=== PATIENT | female | born 1945 | race Caucasian/White ===

== ENCOUNTER 2017-05-09 11:23 | Inpatient (IN) | payer MEDICARE, MEDICAID ==
[~2017-05-09] VITALS: Ht 157.5 cm; Wt 57.6 kg
--- NOTE | 2017-05-09 11:30 | NUR ---
BIBPA SENT BY DR MARTINEZ FROM [facility] FOR PSYCH EVAL, PT IS HAVING AUDITORY AND VISUAL HALLUCINATION-- THINKING SHE'S PREGANANT. PATIENT IS AAO3. APPEARS IN NO APPARENT DISTRESS. RESPIRATION EVEN AND UNLABORED. AFEBRILE. VSS
[2017-05-09 12:07] LABS: BASOPHILS # (AUTO) 0.1 /CMM (0.0-0.2); BASOPHILS % (AUTO) 1.4 % (0.0-2.0); EOSINOPHILS # (AUTO) 0.1 /CMM (0.0-0.7); EOSINOPHILS % (AUTO) 1.5 % (0.0-6.0); HEMATOCRIT 36 % (33-45); HEMOGLOBIN 12.3 g/dL (11.5-14.8); LYMPHOCYTES # (AUTO) 0.9 /CMM (0.8-4.8); LYMPHOCYTES % (AUTO) 21.2 % (20.0-44.0); MEAN CORPUSCULAR HEMOGLOBIN 34 PG (26.0-33.0); MEAN CORPUSCULAR HGB CONC 34 g/dl (31.0-36.0); MEAN CORPUSCULAR VOLUME 98 fL (82-100); MONOCYTES # (AUTO) 0.6 /CMM (0.1-1.30); MONOCYTES % (AUTO) 14.1 % (2.0-12.0); NEUTROPHILS # (AUTO) 2.5 /CMM (1.8-8.9); NEUTROPHILS % (AUTO) 61.8 % (43.0-81.0); PLATELET COUNT (AUTO) 256 /CMM (150-450); RDW COEFFICIENT OF VARIATION 12.8 (11.5-15.0); RED BLOOD CELL COUNT(AUTO) 3.65 MIL/uL (4.0-5.2); WHITE BLOOD COUNT (AUTO) 4.2 K/uL (4.3-11.0)
[2017-05-09 12:08] LABS: APPEARANCE,URINE Hazy (CLEAR); BILIRUBIN,URINE SMALL (NEGATIVE); BLOOD, URINE Negative Ery/uL (NEGATIVE); COLOR,URINE Yellow (YELLOW); KETONES,URINE Trace (NEGATIVE); LEUKOCYTE ESTERASE ,URINE Small (NEGATIVE); NITRITE, URINE Negative (NEGATIVE); PROTEIN,URINE Trace mg/dl (NEGATIVE); UGLUCOSE Negative (NEGATIVE); UROBILINOGEN,URINE 0.2 EU/dL (0.2)
[2017-05-09 12:13] LABS: BACTERIA,URINE None seen /HPF (None Seen); MUCUS,URINE Few /LPF (None Seen); SQUAMOUS EPITHELIAL CELL,UR Few /HPF (None Seen)
[2017-05-09 12:14] LABS: HYALINE CASTS, URINE Rare /LPF (None Seen)
[2017-05-09 12:15] LABS: CALCIUM, SERUM 8.4 mg/dL (8.5-10.1); CARBON DIOXIDE 30 mmol/L (21-32); CHLORIDE 94 mmol/L (98-107); CREATININE 0.9 mg/dL (0.6-1.3); GLUCOSE 105 mg/dL (74-106); POTASSIUM 3.6 mmol/L (3.5-5.1); SODIUM SERUM 129 mmol/L (136-145); UREA NITROGEN, BLOOD 17 mg/dL (7-18)
[2017-05-09 12:25] LABS: ACETAMINOPHEN 0 ug/ml (10-30); ALANINE AMINOTRANSFERASE 26 U/L (12-78); ALBUMIN 3.6 g/dL (3.4-5.0); ALCOHOL, BLOOD < 3 mg/dL (0-0); ALKALINE PHOSPHATASE 64 U/L (46-116); ASPARTATE AMINOTRANSFERASE 22 U/L (15-37); BILIRUBIN,DIRECT 0.1 mg/dL (0.0-0.2); BILIRUBIN,TOTAL 0.4 mg/dL (0.2-1.0); SALICYLATE 1.4 mg/dL (2.8-20.0); TOTAL PROTEIN, SERUM 6.3 g/dL (6.4-8.2)
--- NOTE | 2017-05-09 12:43 | NUR ---
CALLED ART FLUME RIDE OPERATOR, HE SAID HE WOULD BE HERE SOON.
--- NOTE | 2017-05-09 13:53 | NUR ---
urine sample sent to lab
--- NOTE | 2017-05-09 14:24 | NUR ---
CALLED [employer], PROFESSOR OF ENGINEERING WAS PAGED.
[2017-05-09] MEDS ORDERED: TRAZ-144 PO (15:06)
[2017-05-09] MEDS ORDERED: TRIH2TAB3 PO (15:06)
[2017-05-09] MEDS ORDERED: CALC500T3 PO (15:06)
[2017-05-09] MEDS ORDERED: BUSP5TAB3 PO (15:06)
[2017-05-09] MEDS ORDERED: OLAN10TA3 PO (15:06)
[2017-05-09] MEDS ORDERED: LEVO175T7 PO (15:06)
[2017-05-09] MEDS ORDERED: HALO2TAB PO (15:06)
[2017-05-09] MEDS ORDERED: DOCU-170 PO (15:06)
[2017-05-09] MEDS ORDERED: GABA-532 PO (15:06)
[2017-05-09] MEDS ORDERED: CARB200T PO (15:06)
[2017-05-09] MEDS ORDERED: LOSA25TA13 PO (15:06)
[2017-05-09] MEDS ORDERED: CHOL200026 PO (15:06)
[2017-05-09] MEDS ORDERED: ALEN70TA45 PO (15:06)
--- NOTE | 2017-05-09 15:23 | NUR ---
PATIENT WILL BE ADMITTED INTO ROOM 211.
--- NOTE | 2017-05-09 15:34 | NUR ---
REPORT GIVEN TO NURSE YING FOR [facility]
--- NOTE | 2017-05-09 15:38 | NUR ---
PT TRANSPORTED TO [facility]. VSS
[2017-05-09 16:15] VITALS: BP 136/78
--- NOTE | 2017-05-09 16:15 | NUR ---
[employer] MEDICARE SALES EXECUTIVE NOTES/ PATIENT ADMITTED FROM ER ON 5150 HOLD FEMALE 71 Y/OLD ON Dx. OF GD, [place]EN[place]. ACCORDING ON HOLD PATIENT PATIENT DELUSIONAL, HALLUCINATING PATIENT " I AM , AND ME AND MY BOYFRIEND GOING TO MARRED LEGALLY". ON FACE TO FACE ASSESSMENT PATIENT A/O X2/3, NO RESPIRATORY DISTRESS, CALM AT THIS TIME. PATIENT DEPRESS,DELUSIONAL NO ACUTE DISTRESS, PATIENT DENIED SI/HI/AVH AT THIS TIME. PATIENT SKIN ASSESSMENT DONE, SKIN CLEAR, PT AMBULATORY, SELF CARE. PATIENTS RIGHT HAND BOOK GIVEN AND EXPLAINED TO. PATIENT BELONGING AND CONTRABAND CHECKED. FAMILY NOTIFIED. DR MARTINEZ, AND APPARATUS ENGINEERING TECHNOLOGIST RACHEL AWARE OF NEW PATIENT , AND NEW MEDICATION. CONTINUED MONITORING.
[2017-05-09] MEDS ORDERED: LORAZEPAM 0.5 MG TABLET PO PRN (17:00)
[2017-05-09] MEDS ORDERED: ACETAMINOPHEN 325 MG TABLET PO PRN (17:00)
[2017-05-09] MEDS ORDERED: MAG HYDROX/AL HYDROX/SIMETH 30 ML UDC PO PRN (17:00)
[2017-05-09] MEDS ORDERED: MAGNESIUM HYDROXIDE 30 ML UDC PO PRN (17:00)
[2017-05-09] MEDS: DIVALPROEX SODIUM 250 MG TABLET.DR PO SCH ×2 (18:08→21:53)
[2017-05-09 19:32] VITALS: BP 114/75
[2017-05-09] MEDS ORDERED: HALOPERIDOL 5 MG TABLET PO SCH (21:00)
[2017-05-09] MEDS ORDERED: DIVALPROEX SODIUM 250 MG TABLET.DR PO SCH (21:00)
[2017-05-09] MEDS: BENZTROPINE MESYLATE (1 MG) 1 MG TABLET PO SCH (21:53)
[2017-05-09] MEDS: HALOPERIDOL 5 MG TABLET PO SCH (21:53)
[2017-05-09] MEDS: TRAZODONE 50 MG TABLET PO SCH (21:54)
[2017-05-09] MEDS ORDERED: TRAZODONE 50 MG TABLET PO SCH (22:00)
[2017-05-10 07:27] LABS: ALANINE AMINOTRANSFERASE 30 U/L (12-78); ALKALINE PHOSPHATASE 68 U/L (46-116); ASPARTATE AMINOTRANSFERASE 26 U/L (15-37); BILIRUBIN,TOTAL 0.4 mg/dL (0.2-1.0); CARBON DIOXIDE 30 mmol/L (21-32); CHLORIDE 97 mmol/L (98-107); CREATININE 0.7 mg/dL (0.6-1.3); GLUCOSE 87 mg/dL (74-106); POTASSIUM 3.8 mmol/L (3.5-5.1); SODIUM SERUM 137 mmol/L (136-145); TOTAL PROTEIN, SERUM 7.3 g/dL (6.4-8.2); UREA NITROGEN, BLOOD 11 mg/dL (7-18)
[2017-05-10 08:00] VITALS: BP 152/75
[2017-05-10] MEDS: DIVALPROEX SODIUM 250 MG TABLET.DR PO SCH ×3 (08:51→21:28)
[2017-05-10] MEDS: BENZTROPINE MESYLATE (1 MG) 1 MG TABLET PO SCH ×2 (08:51→21:27)
[2017-05-10] MEDS: HALOPERIDOL 5 MG TABLET PO SCH ×2 (08:52→21:28)
[2017-05-10] MEDS ORDERED: CARBAMAZEPINE 200 MG TABLET PO SCH (11:00)
[2017-05-10] MEDS: CHOLECALCIFEROL 1,000 UNIT TABLET (VIT D3) PO SCH (11:36)
[2017-05-10] MEDS: LEVOTHYROXINE SODIUM 175 MCG TABLET PO SCH (11:36)
[2017-05-10] MEDS: DOCUSATE SODIUM 100 MG CAPSULE PO SCH (11:36)
[2017-05-10] MEDS: busPIRone 5 MG TABLET PO SCH ×2 (11:37→17:21)
[2017-05-10] MEDS: GABAPENTIN 100 MG CAPSULE PO SCH ×2 (11:41→21:27)
[2017-05-10] MEDS: LOSARTAN POTASSIUM 25 MG TABLET PO SCH (11:42)
[2017-05-10] MEDS: CALCIUM CARBONATE (1250) 500 MG TABLET PO SCH ×2 (11:56→17:21)
[2017-05-10] MEDS: TRIHEXYPHENIDYL HCL 2 MG TABLET PO SCH ×2 (12:27→17:21)
[2017-05-10 16:02] VITALS: BP 149/78
[2017-05-10 20:26] VITALS: BP 113/72
[2017-05-10 20:28] VITALS: BP 113/72
[2017-05-10] MEDS: TRAZODONE 50 MG TABLET PO SCH (21:28)
[2017-05-11] MEDS: TEMAZEPAM 7.5 MG CAPSULE PO PRN (00:46)
[2017-05-11 06:47] LABS: CHOLESTEROL 178 mg/dL (<200); HDL CHOLESTEROL 90 mg/dL (40-60); LDL 83 mg/dL (0-99); TRIGLYCERIDES 37 mg/dL (30-150)
[2017-05-11 08:00] VITALS: BP 135/90
[2017-05-11] MEDS: LEVOTHYROXINE SODIUM 175 MCG TABLET PO SCH (08:29)
[2017-05-11] MEDS: HALOPERIDOL 5 MG TABLET PO SCH ×2 (08:34→21:44)
[2017-05-11] MEDS: DOCUSATE SODIUM 100 MG CAPSULE PO SCH (08:34)
[2017-05-11] MEDS: CHOLECALCIFEROL 1,000 UNIT TABLET (VIT D3) PO SCH (08:34)
[2017-05-11] MEDS: BENZTROPINE MESYLATE (1 MG) 1 MG TABLET PO SCH ×2 (08:34→21:44)
[2017-05-11] MEDS: DIVALPROEX SODIUM 250 MG TABLET.DR PO SCH ×3 (08:34→21:44)
[2017-05-11] MEDS: busPIRone 5 MG TABLET PO SCH ×2 (08:34→16:41)
[2017-05-11] MEDS: TRIHEXYPHENIDYL HCL 2 MG TABLET PO SCH ×3 (08:36→16:42)
[2017-05-11] MEDS: CALCIUM CARBONATE (1250) 500 MG TABLET PO SCH ×2 (08:36→16:42)
[2017-05-11] MEDS: LOSARTAN POTASSIUM 25 MG TABLET PO SCH (08:39)
--- NOTE | 2017-05-11 14:16 | NUR ---
Initial Discharge Note: Patient resides at [facility] [address] [place] [address]. [place] [address] ([phone]). equipment worker spoke to patient's nephew Livan Finch ([phone]) who confirmed that patient resides at [facility]. equipment worker spoke to Charla from the facility who stated that she would speak to Gretel the local area network administrator from the facility and call back to confirm that patient can return to the facility upon discharge. Per charla, she does not see why patient would not be able to return to the facility upon discharge. equipment worker will help form a safe and proper discharge.
[2017-05-11 16:14] VITALS: BP 119/76
--- NOTE | 2017-05-11 19:30 | NUR ---
[facility]PS RN NOTE, RECEIVED PATIENT AWAKE AND IN BED, NO S/S OR COMPLAINTS OF PAIN AT THIS TIME. PATIENT IS DISPLAYING NO S/S OF APPARENT DISTRESS AT THIS TIME. PATIENT BREATHING IS UNLABORED WITH EQUAL RISE AND FALL OF THE CHEST. PATIENT IS ALERT AND ORIENTED X 2 -3 ON ROOM AIR WITH A SPO2 97%. PATIENT COMPLAINT WITH MEDICATION, ANXIOUS, COOPERATIVE, GUARDED, SUSPICIOUS, AND NEEDS REORIENTATION. PATIENT DENIES SUICIDE AND HOMICIDAL IDEATIONS AT THIS TIME. PATIENT ASSISTED WITH TURNING AND REPOSITIONING Q2HR AND PRN FOR COMFORT AND CIRCULATION. PATIENT HAS NO NEEDS AT THIS TIME. PATIENT EDUCATED ON THE USE OF THE CALL SHULTZ. PATIENT BED SIDE RAILS UP X2 FOR SAFETY, BED IS LOCKED AND LOW WILL CONTINUE TO MONITOR AND MAINTAIN SAFETY.
[2017-05-11 20:03] VITALS: BP 119/66
[2017-05-11] MEDS: GABAPENTIN 100 MG CAPSULE PO SCH (21:44)
[2017-05-11] MEDS: TRAZODONE 50 MG TABLET PO SCH (21:44)
[2017-05-12 08:00] VITALS: BP 125/65
[2017-05-12] MEDS: DIVALPROEX SODIUM 250 MG TABLET.DR PO SCH ×3 (08:20→21:26)
[2017-05-12] MEDS: CHOLECALCIFEROL 1,000 UNIT TABLET (VIT D3) PO SCH (08:20)
[2017-05-12] MEDS: BENZTROPINE MESYLATE (1 MG) 1 MG TABLET PO SCH ×2 (08:20→21:25)
[2017-05-12] MEDS: busPIRone 5 MG TABLET PO SCH ×2 (08:20→16:15)
[2017-05-12] MEDS: CALCIUM CARBONATE (1250) 500 MG TABLET PO SCH ×2 (08:21→16:15)
[2017-05-12] MEDS: HALOPERIDOL 5 MG TABLET PO SCH ×2 (08:21→21:26)
[2017-05-12] MEDS: LEVOTHYROXINE SODIUM 175 MCG TABLET PO SCH (08:21)
[2017-05-12] MEDS: LOSARTAN POTASSIUM 25 MG TABLET PO SCH (08:21)
[2017-05-12] MEDS: TRIHEXYPHENIDYL HCL 2 MG TABLET PO SCH ×3 (08:21→16:15)
[2017-05-12] MEDS: DOCUSATE SODIUM 100 MG CAPSULE PO SCH (08:52)
--- NOTE | 2017-05-12 13:14 | NUR ---
buffing line set up worker spoke to Gretel from [facility] [address] [facility] [place] [address] ([phone]) who confirmed that patient can return upon discharge.
[2017-05-12 15:36] VITALS: BP 107/62
[2017-05-12 20:00] VITALS: BP 112/76
[2017-05-12] MEDS: GABAPENTIN 100 MG CAPSULE PO SCH (22:00)
[2017-05-12] MEDS: TRAZODONE 50 MG TABLET PO SCH (22:00)
[2017-05-12] MEDS: TEMAZEPAM 7.5 MG CAPSULE PO PRN (22:00)
[2017-05-13 08:00] VITALS: BP 117/78
[2017-05-13] MEDS: BENZTROPINE MESYLATE (1 MG) 1 MG TABLET PO SCH ×2 (08:11→21:12)
[2017-05-13] MEDS: LOSARTAN POTASSIUM 25 MG TABLET PO SCH (08:12)
[2017-05-13] MEDS: CALCIUM CARBONATE (1250) 500 MG TABLET PO SCH ×2 (08:12→16:03)
[2017-05-13] MEDS: HALOPERIDOL 5 MG TABLET PO SCH ×2 (08:12→21:12)
[2017-05-13] MEDS: LEVOTHYROXINE SODIUM 175 MCG TABLET PO SCH (08:12)
[2017-05-13] MEDS: busPIRone 5 MG TABLET PO SCH ×2 (08:12→16:03)
[2017-05-13] MEDS: DIVALPROEX SODIUM 250 MG TABLET.DR PO SCH ×3 (08:12→21:12)
[2017-05-13] MEDS: DOCUSATE SODIUM 100 MG CAPSULE PO SCH (08:13)
[2017-05-13] MEDS: TRIHEXYPHENIDYL HCL 2 MG TABLET PO SCH ×3 (08:13→16:03)
[2017-05-13] MEDS: CHOLECALCIFEROL 1,000 UNIT TABLET (VIT D3) PO SCH (09:02)
[2017-05-13 16:00] VITALS: BP 112/72
[2017-05-13 20:00] VITALS: BP 106/70
[2017-05-13] MEDS: TRAZODONE 50 MG TABLET PO SCH (21:12)
[2017-05-13] MEDS: GABAPENTIN 100 MG CAPSULE PO SCH (21:12)
[2017-05-13] MEDS: TEMAZEPAM 7.5 MG CAPSULE PO PRN (21:13)
[2017-05-14 08:09] VITALS: BP 119/65
[2017-05-14] MEDS: LEVOTHYROXINE SODIUM 175 MCG TABLET PO SCH (08:39)
[2017-05-14] MEDS: CHOLECALCIFEROL 1,000 UNIT TABLET (VIT D3) PO SCH (08:53)
[2017-05-14] MEDS: BENZTROPINE MESYLATE (1 MG) 1 MG TABLET PO SCH ×2 (08:53→21:41)
[2017-05-14] MEDS: HALOPERIDOL 5 MG TABLET PO SCH ×2 (08:53→21:41)
[2017-05-14] MEDS: CALCIUM CARBONATE (1250) 500 MG TABLET PO SCH ×2 (08:53→16:22)
[2017-05-14] MEDS: busPIRone 5 MG TABLET PO SCH ×2 (08:53→16:22)
[2017-05-14] MEDS: DIVALPROEX SODIUM 250 MG TABLET.DR PO SCH ×3 (08:53→21:41)
[2017-05-14] MEDS: DOCUSATE SODIUM 100 MG CAPSULE PO SCH (08:53)
[2017-05-14] MEDS: LOSARTAN POTASSIUM 25 MG TABLET PO SCH (08:54)
[2017-05-14] MEDS: TRIHEXYPHENIDYL HCL 2 MG TABLET PO SCH ×3 (08:59→16:22)
[2017-05-14 16:10] VITALS: BP 99/53
[2017-05-14 20:00] VITALS: BP 100/56
[2017-05-14] MEDS: GABAPENTIN 100 MG CAPSULE PO SCH (21:41)
[2017-05-14] MEDS: TRAZODONE 50 MG TABLET PO SCH (21:41)
[2017-05-14] MEDS: TEMAZEPAM 7.5 MG CAPSULE PO PRN (21:41)
[2017-05-15 08:00] VITALS: BP 107/74
[2017-05-15] MEDS: LEVOTHYROXINE SODIUM 175 MCG TABLET PO SCH (08:55)
[2017-05-15] MEDS: TRIHEXYPHENIDYL HCL 2 MG TABLET PO SCH ×3 (08:56→16:14)
[2017-05-15] MEDS: BENZTROPINE MESYLATE (1 MG) 1 MG TABLET PO SCH ×2 (08:57→20:53)
[2017-05-15] MEDS: DOCUSATE SODIUM 100 MG CAPSULE PO SCH (08:57)
[2017-05-15] MEDS: busPIRone 5 MG TABLET PO SCH ×2 (08:57→16:14)
[2017-05-15] MEDS: LOSARTAN POTASSIUM 25 MG TABLET PO SCH (08:58)
[2017-05-15] MEDS: DIVALPROEX SODIUM 250 MG TABLET.DR PO SCH ×3 (08:58→20:54)
[2017-05-15] MEDS: HALOPERIDOL 5 MG TABLET PO SCH ×2 (08:58→20:54)
[2017-05-15] MEDS: CHOLECALCIFEROL 1,000 UNIT TABLET (VIT D3) PO SCH (08:59)
[2017-05-15] MEDS: CALCIUM CARBONATE (1250) 500 MG TABLET PO SCH ×2 (08:59→16:14)
[2017-05-15 16:00] VITALS: BP 95/64
[2017-05-15 19:55] VITALS: BP 128/72
[2017-05-15] MEDS: GABAPENTIN 100 MG CAPSULE PO SCH (20:53)
[2017-05-15] MEDS: TRAZODONE 50 MG TABLET PO SCH (20:54)
[2017-05-16] MEDS ORDERED: ALENDRONATE 70 MG TABLET PO SCH (07:30)
[2017-05-16 08:00] VITALS: BP 129/68
[2017-05-16] MEDS: LEVOTHYROXINE SODIUM 175 MCG TABLET PO SCH (08:47)
[2017-05-16] MEDS: TRIHEXYPHENIDYL HCL 2 MG TABLET PO SCH ×3 (08:48→16:29)
[2017-05-16] MEDS: BENZTROPINE MESYLATE (1 MG) 1 MG TABLET PO SCH ×2 (08:48→21:38)
[2017-05-16] MEDS: busPIRone 5 MG TABLET PO SCH ×2 (08:48→16:29)
[2017-05-16] MEDS: DOCUSATE SODIUM 100 MG CAPSULE PO SCH (08:49)
[2017-05-16] MEDS: DIVALPROEX SODIUM 250 MG TABLET.DR PO SCH ×3 (08:49→21:39)
[2017-05-16] MEDS: LOSARTAN POTASSIUM 25 MG TABLET PO SCH (08:49)
[2017-05-16] MEDS: HALOPERIDOL 5 MG TABLET PO SCH ×2 (08:49→21:38)
[2017-05-16] MEDS: CHOLECALCIFEROL 1,000 UNIT TABLET (VIT D3) PO SCH (08:50)
[2017-05-16] MEDS: CALCIUM CARBONATE (1250) 500 MG TABLET PO SCH ×2 (08:53→16:29)
[2017-05-16 16:00] VITALS: BP 123/77
[2017-05-16 20:40] VITALS: BP 106/58
[2017-05-16] MEDS: GABAPENTIN 100 MG CAPSULE PO SCH (21:39)
[2017-05-16] MEDS: TRAZODONE 50 MG TABLET PO SCH (21:39)
[2017-05-17 06:44] LABS: BASOPHILS % (AUTO) 0.9 % (0.0-2.0); EOSINOPHILS # (AUTO) 0.2 /CMM (0.0-0.7); EOSINOPHILS % (AUTO) 5.9 % (0.0-6.0); HEMATOCRIT 37 % (33-45); HEMOGLOBIN 12.5 g/dL (11.5-14.8); LYMPHOCYTES # (AUTO) 1.3 /CMM (0.8-4.8); LYMPHOCYTES % (AUTO) 39.2 % (20.0-44.0); MEAN CORPUSCULAR HEMOGLOBIN 34 PG (26.0-33.0); MEAN CORPUSCULAR HGB CONC 34 g/dl (31.0-36.0); MEAN CORPUSCULAR VOLUME 100 fL (82-100); MONOCYTES # (AUTO) 0.5 /CMM (0.1-1.30); MONOCYTES % (AUTO) 14.7 % (2.0-12.0); NEUTROPHILS # (AUTO) 1.3 /CMM (1.8-8.9); NEUTROPHILS % (AUTO) 39.3 % (43.0-81.0); PLATELET COUNT (AUTO) 209 /CMM (150-450); RDW COEFFICIENT OF VARIATION 13.3 (11.5-15.0); RED BLOOD CELL COUNT(AUTO) 3.68 MIL/uL (4.0-5.2); WHITE BLOOD COUNT (AUTO) 3.2 K/uL (4.3-11.0)
[2017-05-17 07:01] LABS: CALCIUM, SERUM 8.5 mg/dL (8.5-10.1); CARBON DIOXIDE 30 mmol/L (21-32); CHLORIDE 93 mmol/L (98-107); CREATININE 0.6 mg/dL (0.6-1.3); GLUCOSE 86 mg/dL (74-106); POTASSIUM 4.1 mmol/L (3.5-5.1); SODIUM SERUM 129 mmol/L (136-145); UREA NITROGEN, BLOOD 10 mg/dL (7-18)
[2017-05-17 08:00] VITALS: BP 121/78
[2017-05-17] MEDS: LEVOTHYROXINE SODIUM 175 MCG TABLET PO SCH (08:33)
[2017-05-17] MEDS: TRIHEXYPHENIDYL HCL 2 MG TABLET PO SCH ×3 (08:33→16:05)
[2017-05-17] MEDS: DOCUSATE SODIUM 100 MG CAPSULE PO SCH (08:34)
[2017-05-17] MEDS: HALOPERIDOL 5 MG TABLET PO SCH ×2 (08:34→21:32)
[2017-05-17] MEDS: busPIRone 5 MG TABLET PO SCH ×2 (08:34→16:05)
[2017-05-17] MEDS: DIVALPROEX SODIUM 250 MG TABLET.DR PO SCH ×3 (08:34→21:33)
[2017-05-17] MEDS: BENZTROPINE MESYLATE (1 MG) 1 MG TABLET PO SCH ×2 (08:34→21:31)
[2017-05-17] MEDS: CALCIUM CARBONATE (1250) 500 MG TABLET PO SCH ×2 (08:35→16:05)
[2017-05-17] MEDS: CHOLECALCIFEROL 1,000 UNIT TABLET (VIT D3) PO SCH (08:35)
[2017-05-17] MEDS: LOSARTAN POTASSIUM 25 MG TABLET PO SCH (08:37)
--- NOTE | 2017-05-17 10:45 | NUR ---
NTH-EC-NDEGV: NOTIFIED ELAYNE CAMERON ABOUT LAB RESULTS ON 05/17/17: WBC=3.2, RBC= 3.68, MCH= 34, NEUT%=39.3, MONO%= 14.7, NEUT#= 1.3, VIEQYW=473. NO NEW ORDERS GIVEN AT THIS TIME
--- NOTE | 2017-05-17 14:39 | NUR ---
pier worker spoke to Gretel from [address] [place] [address] ([phone]) to inform her that patient will be discharged tomorrow. Gretel was agreeable with the discharge plan.
--- NOTE | 2017-05-17 14:45 | NUR ---
high worker spoke to patient's nephew Livan Finch ([phone]) to inform him of patient's discharge tomorrow. Patient's nephew was agreeable with the discharge plan.
[2017-05-17 16:00] VITALS: BP 119/77
--- NOTE | 2017-05-17 16:52 | NUR ---
IUB-RN-RADBH: NOTIFIED PACKING SHED SUPERVISOR ELAYNE RYANNEZ ABOUT LAB RESULTS ON 05/17/17: WBC= 3.2, RBC= 3.68, MCH=34, NEUT%= 39.3, MONO%= 14.7, NEUT#=1.3, NA= 129. LABS ORDERED FOR TOMORROW.
[2017-05-17 20:10] VITALS: BP 99/60
[2017-05-17] MEDS: GABAPENTIN 100 MG CAPSULE PO SCH (21:32)
[2017-05-17] MEDS: TRAZODONE 50 MG TABLET PO SCH (21:32)
[2017-05-18 07:24] LABS: CALCIUM, SERUM 8.7 mg/dL (8.5-10.1); CARBON DIOXIDE 30 mmol/L (21-32); CHLORIDE 93 mmol/L (98-107); CREATININE 0.6 mg/dL (0.6-1.3); GLUCOSE 82 mg/dL (74-106); POTASSIUM 4.4 mmol/L (3.5-5.1); SODIUM SERUM 129 mmol/L (136-145); UREA NITROGEN, BLOOD 10 mg/dL (7-18)
[2017-05-18 08:14] VITALS: BP 119/78
[2017-05-18] MEDS: LEVOTHYROXINE SODIUM 175 MCG TABLET PO SCH (08:15)
[2017-05-18] MEDS: CALCIUM CARBONATE (1250) 500 MG TABLET PO SCH (08:42)
[2017-05-18] MEDS: BENZTROPINE MESYLATE (1 MG) 1 MG TABLET PO SCH (08:43)
[2017-05-18] MEDS: CHOLECALCIFEROL 1,000 UNIT TABLET (VIT D3) PO SCH (08:43)
[2017-05-18] MEDS: DIVALPROEX SODIUM 250 MG TABLET.DR PO SCH (08:43)
[2017-05-18] MEDS: HALOPERIDOL 5 MG TABLET PO SCH (08:43)
[2017-05-18] MEDS: busPIRone 5 MG TABLET PO SCH (08:43)
[2017-05-18] MEDS: TRIHEXYPHENIDYL HCL 2 MG TABLET PO SCH ×2 (08:43→12:55)
[2017-05-18] MEDS: DOCUSATE SODIUM 100 MG CAPSULE PO SCH (08:43)
[2017-05-18 09:11] VITALS: BP 119/78
[2017-05-18] MEDS: LOSARTAN POTASSIUM 25 MG TABLET PO SCH (09:11)
--- NOTE | 2017-05-18 14:04 | NUR ---
CONCRETE PRODUCTS DISPATCHER NOTE: PT DISCHARGE TO [address] [address] PHONE [phone] MED RESPONSE.DR MICHELLE VILLAGOMEZ PT HOLD WITH RX WITH GIVEN AND EXPLAIN TO PT ALSO T.O. NEW ORDER FOR DEPAKOTE 250 MG Q 12 HR AND Q5 PM ORDER PLACED AND FAX TO PT PHARMACY [phone].N/P/ ELAYNE GARCIA SEEN AND EXAMINE PT AWARE OF PT LABS AND NA 129 NO NEW ORDERS OK TO DC PATIENT. PATIENT IN STABLE CONDITION NO S/S DISTRESS NOTED PATIENT DENIES SI/HI VSS WNL, SKIN INTACT, ALL BELONGINGS AND VALUABLES RETURNED TO PATIENT , EXIT CARE DONE, PRINTED ,SIGN AND GIVEN TO PATIENT.
--- NOTE | 2017-05-18 15:23 | NUR ---
Discharge Note: Patient was discharged to [facility] [address] [facility] [place] [address] ([phone]). Via med response. Patients nephew Livan Finch ([phone]) was notified. Patient and patient's nephew were agreeable with the discharge. Patient's mood and affect were appropriate upon discharge. Patient denied suicidal and homicidal ideations. Patient will follow-up with Dr. Pfeiffer at the facility. Facilitated info to IDT team who are in agreement with discharge arrangement. The multidisciplinary exitcare form was done, printed, signed, and given to the patient.
== END 2017-05-18 13:45 | DRG 885 ==
LOC: ER 11:29 → GPS 15:58
PROVIDERS: ADMIT Psychiatry & Neurology Psychiatry; ATTEND Psychiatry & Neurology Psychiatry
DX: F20.0 Paranoid schizophrenia (principal); G20 Parkinson's disease; E87.1 Hypo-osmolality and hyponatremia; E03.9 Hypothyroidism, unspecified; E78.5 Hyperlipidemia, unspecified; I10 Essential (primary) hypertension; K21.9 Gastro-esophageal reflux disease without esophagitis; M81.0 Age-related osteoporosis without current pathological fracture; F41.9 Anxiety disorder, unspecified; F32.9 Major depressive disorder, single episode, unspecified; Z73.6 Limitation of activities due to disability
CPT/HCPCS: 36415; 80048-TC; 80053-TC; 80061-TC; 80076-TC; 80164-TC; 80305; 81000-TC; 85025-TC; 87081-TC; G0480; Z7610